=== PATIENT | male | born 1945 | race Caucasian/White ===

== ENCOUNTER → 2018-04-12 08:53 | Outpatient (CLI) | payer MEDICARE, BC, SELFPAY ==
[2018-04-12 09:58] LABS: BUN Creatinine Ratio 23.3 (6-22); Blood Urea Nitrogen 21 mg/dL (9-20); Carbon Dioxide 29 mmol/L (22-32); Chloride 105 mmol/L (98-107); Estimated Glomerular Filt Rate > 60.0 mL/min (>60); Glucose 101 mg/dL (80-110); HEMOLYSIS < 15 (0-50); Potassium 4.1 mmol/L (3.4-5.1); Sodium 145 mmol/L (137-145)
== END ==
PROVIDERS: PCP Internal Medicine; Visit Provider Internal Medicine
DX: I10 Essential (primary) hypertension (principal); E11.9 Type 2 diabetes mellitus without complications
CPT/HCPCS: 36415; 80048; 83036

== ENCOUNTER 2018-06-27 11:35 | Emergency (ER) | payer MEDICARE, BC, SELFPAY ==
[2018-06-27 11:48] VITALS: BP 153/89; PULSE 60; RESP 20; TEMP 36; O2SAT 100
--- NOTE | 2018-06-27 13:21 | ED.ABDPAIN ---
HPI - Abdominal Pain <WOODY Lynch - Last Filed: 06/27/18 22:02> General Chief Complaint: Abdominal Pain Stated Complaint: pain lower right side Time Seen by Provider: 06/27/18 13:21 Source: patient Mode of arrival: ambulatory Limitations: no limitations History of Present Illness HPI narrative: [age] year old male with history of hypertension and a nonsmoker here for complaint of right-sided abdominal pain that started this morning. He states that he woke up with the pain. He denies any nausea vomiting. Last p.o. intake was this morning. He states that he had a stool this morning as well that was normal. He denies any urinary symptoms. No fevers no chills. He denies any trauma to the abdomen. He denies any stressors or relievers of his pain. MD complaint: abdominal pain Related Data Home Medications Medication Instructions Recorded Confirmed aspirin 81 mg PO QDAY #0 06/21/11 06/27/18 multivitamin 1 tab PO QDAY #0 06/21/11 06/27/18 Saline Mist 1 spray INHALATION BID 06/27/18 06/27/18 budesonide, micronized (bulk) 0.6 mg MISCELLANEOUS Q OTHER DAY 06/27/18 06/27/18 lisinopril 20 mg PO DAILY 06/27/18 06/27/18 soft lens rinse,store solution 06/27/18 06/27/18 [Saline Solution] Previous Rx's Medication Instructions Recorded docusate calcium [Surfak] 240 mg PO DAILY #10 cap 06/27/18 hydrocodone-acetaminophen [[place]] 1 tab PO Q4-6H PRN #15 tab 06/27/18 tamsulosin 0.4 mg PO DAILY #7 cap 06/27/18 Allergies Allergy/AdvReac Type Severity Reaction Status Date / Time No Known Drug Allergies Allergy Verified 06/27/18 11:48 Review of Systems <WOODY Lynch - Last Filed: 06/27/18 22:02> Constitutional Denies chills, Denies fever(s), Denies lethargy and Denies weakness Eyes Denies change in vision, Denies eye discharge, Denies irritation and Denies loss of vision ENT Ears, Nose, Mouth, and Throat: Denies change in voice, Denies neck pain and Denies sore throat Cardiovascular Denies chest pain, Denies irregular heart rhythm, Denies lightheadedness, Denies palpitations, Denies dyspnea, Denies dyspnea on exertion and Denies orthopnea Respiratory Denies cough, Denies dyspnea, Denies dyspnea on exertion and Denies wheezing Gastrointestinal Gastrointestinal: Reports abdominal pain Genitourinary Denies hematuria, Denies flank pain, Denies urinary incontinence and Denies urinary urgency Musculoskeletal Denies neck pain Integumentary/Breasts Denies pruritus, Denies erythema, Denies rash and Denies wounds Neurologic Denies confusion, Denies loss of vision and Denies weakness Psychiatric Denies anxiety, Denies confusion, Denies depression, Denies homicidal ideation and Denies suicidal ideation Endocrine Denies palpitations Hematologic/Lymphatic Denies easy bruising Allergic/Immunologic Denies wheezing Exam <WOODY Lynch - Last Filed: 06/27/18 22:02> Initial Vital Signs Initial Vital Signs: Vital Signs Temperature 96.8 F L 06/27/18 11:48 Pulse Rate 60 06/27/18 11:48 Respiratory Rate 20 06/27/18 11:48 Blood Pressure 153/89 H 06/27/18 11:48 Pulse Oximetry 100 06/27/18 11:48 Const General: cooperative and well developed Nutritional Appearance: well nourished Orientation: alert, awake, oriented x3 and not confused HENAZ Mouth: oral mucosae normal and moist mucous membranes Eyes Conjunctivae: conjunctivae normal Sclera: sclerae normal Pupils: PERRL EOM: EOM intact bilaterally Resp Effort & Inspection: normal respiratory effort, able to speak in complete sentences, no respiratory distress and no use of accessory muscles Auscultation: clear to auscultation bilaterally, no rales, no rhonchi and no wheezes Cardio Rate: regular rate Rhythm: regular rhythm Heart Sounds: no click, no gallops, no murmurs and no rubs Pulses: normal peripheral pulses GI Inspection: non-distended Palpation: soft, no hepatosplenomegaly, No guarding, No pulsatile mass and tender (Tenderness to right lower quadrant) Auscultation: normal bowel sounds General: CVA tenderness Skin General: no rashes or lesions noted, No jaundice and No petechiae Neuro General: alert, oriented x3, gait normal and no focal motor deficits Speech: speech normal <Malaika Martinez DO - Last Filed: 06/30/18 08:08> Initial Vital Signs Initial Vital Signs: Vital Signs Temperature 96.8 F L 06/27/18 11:48 Pulse Rate 60 06/27/18 11:48 Respiratory Rate 20 06/27/18 11:48 Blood Pressure 153/89 H 06/27/18 11:48 Pulse Oximetry 100 06/27/18 11:48 Course <WOODY Lynch - Last Filed: 06/27/18 22:02> Orders Ordered: Discontinued Medications Hydromorphone HCl (Dilaudid) 0.5 mg IV NOW ONE Stop: 06/27/18 13:30 Last Admin: 06/27/18 13:34 Dose: 0.5 mg Sodium Chloride (Normal Saline 0.9%) 1,000 mls @ 1,000 mls/hr IV BOLUS ONE Stop: 06/27/18 14:28 Last Infusion: 06/27/18 14:28 Dose: 0 mls/hr Admin: 06/27/18 13:35 Dose: 1,000 mls/hr Ketorolac Tromethamine (Toradol) 30 mg IV NOW ONE Stop: 06/27/18 14:32 Last Admin: 06/27/18 14:35 Dose: 30 mg Ondansetron HCl (Zofran) 4 mg IV NOW ONE Stop: 06/27/18 13:30 Last Admin: 06/27/18 13:34 Dose: 4 mg Vital Signs - 8 hr 06/27/18 14:47 Pulse Rate 72 Respiratory Rate 20 Blood Pressure [Left Arm] 118/63 Pulse Oximetry 99 <Malaika Martinez DO - Last Filed: 06/30/18 08:08> Orders Ordered: Discontinued Medications Hydromorphone HCl (Dilaudid) 0.5 mg IV NOW ONE Stop: 06/27/18 13:30 Last Admin: 06/27/18 13:34 Dose: 0.5 mg Sodium Chloride (Normal Saline 0.9%) 1,000 mls @ 1,000 mls/hr IV BOLUS ONE Stop: 06/27/18 14:28 Last Infusion: 06/27/18 14:28 Dose: 0 mls/hr Admin: 06/27/18 13:35 Dose: 1,000 mls/hr Ketorolac Tromethamine (Toradol) 30 mg IV NOW ONE Stop: 06/27/18 14:32 Last Admin: 06/27/18 14:35 Dose: 30 mg Ondansetron HCl (Zofran) 4 mg IV NOW ONE Stop: 06/27/18 13:30 Last Admin: 06/27/18 13:34 Dose: 4 mg Vital Signs - 8 hr 06/27/18 14:47 Pulse Rate 72 Respiratory Rate 20 Blood Pressure [Left Arm] 118/63 Pulse Oximetry 99 MDM - Abdominal Pain <WOODY Lynch - Last Filed: 06/27/18 22:02> Lab Data Result diagrams: 06/27/18 13:20 06/27/18 13:20 Lab Results 06/27/18 06/27/18 Range/Units 13:20 13:20 WBC 12.7 H (4.5-11.0) X10^3/uL RBC 5.24 (4.5-5.9) X10^6/uL Hgb 15.1 (13.5-17.5) g/dL Hct 44.8 (41-53) % MCV 85.5 (80-100) fL MCH 28.8 (26-34) PG MCHC 33.7 (30-36) % RDW 13.9 (11.6-14.8) % Plt Count 181 (150-400) X10^3/uL Neut % (Auto) 78.1 H (50-75) % Lymph % (Auto) 10.4 L (25-40) % George % (Auto) 8.8 (3-14) % Eos % (Auto) 2.0 (2-4) % Baso % (Auto) 0.7 (0-2) % Neut # (Auto) 9900 H (0987-0503) /uL Sodium 141 (137-145) mmol/L Potassium 4.1 (3.4-5.1) mmol/L Chloride 101 (98-107) mmol/L Carbon Dioxide 23 (22-32) mmol/L BUN 21 H (9-20) mg/dL Creatinine 1.00 (0.66-1.25) mg/dL Estimated GFR > 60.0 (>60) mL/min BUN/Creatinine Ratio 21.0 (6-22) Glucose 169 H (80-110) mg/dL Calcium 9.7 (8.4-10.2) mg/dL Total Bilirubin 1.2 (0.2-1.3) mg/dL AST 38 (17-59) IU/L ALT 53 (21-72) IU/L Alkaline Phosphatase 64 (38-126) U/L Total Protein 7.2 (6.3-8.2) g/dL Albumin 4.6 (3.5-5.0) g/dL Globulin 2.6 (1.7-4.1) g/dL Albumin/Globulin Ratio 1.8 (1.0-2.8) Lipase 102 (23-300) U/L Point of care testing: Urine Dip Bedside Urine Glucose Negative Bedside Urine Bilirubin - Negative Bedside Urine Ketone +/- 5 Urine Specific [place] 1.010 Bedside Urine Occult Blood +++ Bedside Urine pH 7.5 Bedside Urine Protein - Negative Bedside Urine Urobilinogen 0.2 Bedside Urine Nitrite - Negative Bedside Urine Leukocytes - Negative Esterase Imaging Data CT scan - abdomen: Radiologist's impression: CT Scan Report Signed Patient: Andrade Juarez [facility]#: [id number] : 6Acct:[id number] Age/Sex: 72 / MDate of Service: 06/27/18 Loc: ED Accession Number: [id number] Procedure: CT abdomen pelvis w con Ordering Provider: Ervin Bejarano PROCEDURE: CT ABDOMEN PELVIS W CON INDICATIONS: Right lower quadrant pain TECHNIQUE: After the administration of intravenous contrast, 5 mm thick sections acquired from the diaphragm to the symphysis. 5 mm coronal and sagittal reformats were acquired. For radiation dose reduction, the following was used: automated exposure control, adjustment of mA and/or kV according to patient size. COMPARISON: [facility], , ABD AORTA ANEURYSM SCREENING, 10/05/2014, 13:46. FINDINGS: Image quality: Excellent. ABDOMEN: Lung bases: Lung bases are clear. Heart size is normal. A small hiatal hernia is incidentally noted. Solid organs: Liver is normal in size and enhancement. Gallbladder wall is not thickened. Biliary system is non dilated. Pancreas enhances normally. Spleen is normal in size and enhancement. No adrenal nodules. Kidneys demonstrate normal size and enhancement. There is an obstructing stone seen involving the right proximal ureter, as on series 2 image 46 and on series 4 image 31 that measures 4 mm. There is associated moderate to prominent right-sided hydroureter and hydronephrosis. Tiny nonobstructing kidney stones are seen on the right that measure 1-2 mm. Simple appearing nonenhancing bilateral renal cysts are seen. There is no left-sided hydronephrosis. Peritoneum and bowel: Bowel loops demonstrate normal wall thickness and caliber. No free fluid or air. The appendix is well-seen and is normal. Diverticulosis is seen, without findings of active diverticulitis. Nodes and vessels: No retroperitoneal or mesenteric adenopathy by size criteria. Aorta and inferior vena cava are normal in size. Miscellaneous: No ventral hernias. PELVIS: Genitourinary: Bladder wall thickness is normal. Miscellaneous: No inguinal hernias or adenopathy. Prior right inguinal hernia repair can be seen. Bones: No suspicious bony lesions. No vertebral body compression fractures. IMPRESSION: Obstructing right proximal ureteral stone measuring 4 mm. There is associated hydroureter, hydronephrosis, and perinephric fat stranding. Tiny nonobstructing right-sided kidney stones are seen. Normal appendix. Incidental note is made of: Small hiatal hernia Prior right inguinal hernia repair Diverticulosis is seen, without findings of active diverticulitis. Note: Case discussed by telephone with Ervin Wilkinson at 2:32 PM on June 27, 2018. Dictated by: Delonte Petty M.D. on 06/27/2018 at 14:28 Approved by: Delonte Petty M.D. on 06/27/2018 at 14:33 MDM Narrative Medical decision making narrative: CBC shows elevated white count of 12.7 and elevated neutrophils. Chem panel was obtained was unremarkable. Lipase was negative. CT of the abdomen shows a 4 mm obstructing stone in the right ureter with hydronephrosis and hydroureter. he was given Dilaudid and Toradol in the emergency room along with fluids. Patient is feeling much better at this timeframe. He is prescribed tamulosin and [place]. He is also prescribed stool softener to help with the [place]. Follow up with primary care provider the next few days for re-evaluation. He is instructed to strain his urine. For any worsening symptoms return to the emergency room. <Malaika Martinez DO - Last Filed: 06/30/18 08:08> Lab Data Lab Results 09/20/18 09/20/18 Range/Units 13:20 13:20 WBC 12.7 H (4.5-11.0) X10^3/uL RBC 5.24 (4.5-5.9) X10^6/uL Hgb 15.1 (13.5-17.5) g/dL Hct 44.8 (41-53) % MCV 85.5 (80-100) fL MCH 28.8 (26-34) PG MCHC 33.7 (30-36) % RDW 13.9 (11.6-14.8) % Plt Count 181 (150-400) X10^3/uL Neut % (Auto) 78.1 H (50-75) % Lymph % (Auto) 10.4 L (25-40) % George % (Auto) 8.8 (3-14) % Eos % (Auto) 2.0 (2-4) % Baso % (Auto) 0.7 (0-2) % Neut # (Auto) 9900 H (8977-2946) /uL Sodium 141 (137-145) mmol/L Potassium 4.1 (3.4-5.1) mmol/L Chloride 101 (98-107) mmol/L Carbon Dioxide 23 (22-32) mmol/L BUN 21 H (9-20) mg/dL Creatinine 1.00 (0.66-1.25) mg/dL Estimated GFR > 60.0 (>60) mL/min BUN/Creatinine Ratio 21.0 (6-22) Glucose 169 H (80-110) mg/dL Calcium 9.7 (8.4-10.2) mg/dL Total Bilirubin 1.2 (0.2-1.3) mg/dL AST 38 (17-59) IU/L ALT 53 (21-72) IU/L Alkaline Phosphatase 64 (38-126) U/L Total Protein 7.2 (6.3-8.2) g/dL Albumin 4.6 (3.5-5.0) g/dL Globulin 2.6 (1.7-4.1) g/dL Albumin/Globulin Ratio 1.8 (1.0-2.8) Lipase 102 (23-300) U/L Point of care testing: Urine Dip Bedside Urine Glucose Negative Bedside Urine Bilirubin - Negative Bedside Urine Ketone +/- 5 Urine Specific [place] 1.010 Bedside Urine Occult Blood +++ Bedside Urine pH 7.5 Bedside Urine Protein - Negative Bedside Urine Urobilinogen 0.2 Bedside Urine Nitrite - Negative Bedside Urine Leukocytes - Negative Esterase Discharge Plan Departure Patient Disposition: Home Clinical Impression: Right nephrolithiasis Discharge Date/Time: 06/27/18 15:27 Interventions: ED Discharge Assessment Last Done: 06/27/18 15:26 Instructions: Kidney Stones -- Adult Activity Restrictions/Additional Instructions: CT the abdomen shows kidney stone into the right ureter. Laboratory results today were unremarkable. Urine prescribed [place] for pain use as directed. UR also prescribed Taulosin to help pass the stone. Strain all of her urine if a kidney stone was collected save for analysis. Follow up with her primary care provider in the next few days. No driving while on the [place]. Stool Softener also prescribed to help prevent constipation. For any worsening symptoms return to the emergency room. Prescriptions: New hydrocodone-acetaminophen [[place]] 5-325 mg tablet 1 tab PO Q4-6H PRN (Reason: pain) Qty: 15 RF: 0 docusate calcium [Surfak] 240 mg capsule 240 mg PO DAILY Qty: 10 RF: 0 tamsulosin 0.4 mg capsule 0.4 mg PO DAILY Qty: 7 RF: 0 No Action multivitamin Tablet 1 tab PO QDAY Qty: 0 RF: 0 aspirin 81 MG tablet,delayed release (DR/EC) 81 mg PO QDAY Qty: 0 RF: 0 lisinopril 20 mg tablet 20 mg PO DAILY RF: 0 budesonide, micronized (bulk) 100 % powder 0.6 mg miscellaneous Q OTHER DAY RF: 0 soft lens rinse,store solution [Saline Solution] Solution RF: 0 Saline Mist 1 spray Inhalation BID RF: 0 Referrals: Bryant Juarez MD [Primary Care Provider] - <Malaika Martinez DO - Last Filed: 06/30/18 08:08> Cosign ED Attending Cosignature Attestation: I was immediately available in the department for consultation. This documentation has been reviewed and I agree with assessment and plan. Supervised by Malaika Martinez DO
[2018-06-27] MEDS: HYDROMORPHONE 1 MG INJ 0.5 MG IV (13:34)
[2018-06-27] MEDS: ONDANSETRON 4 MG/2 ML INJ IV (13:34)
[2018-06-27] MEDS: SODIUM CHLORIDE 0.9% 1,000 ML 1000 ML IV (13:35)
[2018-06-27 13:38] LABS: Add Manual Diff / Slide Review NO; Basophils Percent Auto 0.7 % (0-2); Hematocrit 44.8 % (41-53); Hemoglobin 15.1 g/dL (13.5-17.5); Lymphocytes Percent Auto 10.4 % (25-40); Mean Corpuscular HGB Conc 33.7 % (30-36); Mean Corpuscular Hemoglobin 28.8 PG (26-34); Mean Corpuscular Volume 85.5 fL (80-100); Monocytes Percent Auto 8.8 % (3-14); Neutrophils Absolute Auto 9900 /uL (3000-5900); Neutrophils Percent Auto 78.1 % (50-75); Platelet Count 181 X10^3/uL (150-400); Red Blood Cell Count 5.24 X10^6/uL (4.5-5.9); Red Cell Distribution Width 13.9 % (11.6-14.8); White Blood Cell Count 12.7 X10^3/uL (4.5-11.0)
[2018-06-27 13:43] LABS: Alanine Aminotransferase 53 IU/L (21-72); Albumin 4.6 g/dL (3.5-5.0); Albumin Globulin Ratio 1.8 (1.0-2.8); Alkaline Phosphatase 64 U/L (38-126); Aspartate Aminotransferase 38 IU/L (17-59); Bilirubin Total 1.2 mg/dL (0.2-1.3); Blood Urea Nitrogen 21 mg/dL (9-20); Calcium 9.7 mg/dL (8.4-10.2); Carbon Dioxide 23 mmol/L (22-32); Chloride 101 mmol/L (98-107); Estimated Glomerular Filt Rate > 60.0 mL/min (>60); Globulin 2.6 g/dL (1.7-4.1); Glucose 169 mg/dL (80-110); HEMOLYSIS < 15 (0-50); Lipase 102 U/L (23-300); Potassium 4.1 mmol/L (3.4-5.1); Sodium 141 mmol/L (137-145); Total Protein 7.2 g/dL (6.3-8.2)
--- NOTE | 2018-06-27 13:45 | DI.CT.S_ITS ---
PROCEDURE: CT ABDOMEN PELVIS W CON INDICATIONS: Right lower quadrant pain TECHNIQUE: After the administration of intravenous contrast, 5 mm thick sections acquired from the diaphragm to the symphysis. 5 mm coronal and sagittal reformats were acquired. For radiation dose reduction, the following was used: automated exposure control, adjustment of mA and/or kV according to patient size. COMPARISON: [facility], , ABD AORTA ANEURYSM SCREENING, 10/05/2014, 13:46. FINDINGS: Image quality: Excellent. ABDOMEN: Lung bases: Lung bases are clear. Heart size is normal. A small hiatal hernia is incidentally noted. Solid organs: Liver is normal in size and enhancement. Gallbladder wall is not thickened. Biliary system is non dilated. Pancreas enhances normally. Spleen is normal in size and enhancement. No adrenal nodules. Kidneys demonstrate normal size and enhancement. There is an obstructing stone seen involving the right proximal ureter, as on series 2 image 46 and on series 4 image 31 that measures 4 mm. There is associated moderate to prominent right-sided hydroureter and hydronephrosis. Tiny nonobstructing kidney stones are seen on the right that measure 1-2 mm. Simple appearing nonenhancing bilateral renal cysts are seen. There is no left-sided hydronephrosis. Peritoneum and bowel: Bowel loops demonstrate normal wall thickness and caliber. No free fluid or air. The appendix is well-seen and is normal. Diverticulosis is seen, without findings of active diverticulitis. Nodes and vessels: No retroperitoneal or mesenteric adenopathy by size criteria. Aorta and inferior vena cava are normal in size. Miscellaneous: No ventral hernias. PELVIS: Genitourinary: Bladder wall thickness is normal. Miscellaneous: No inguinal hernias or adenopathy. Prior right inguinal hernia repair can be seen. Bones: No suspicious bony lesions. No vertebral body compression fractures. IMPRESSION: Obstructing right proximal ureteral stone measuring 4 mm. There is associated hydroureter, hydronephrosis, and perinephric fat stranding. Tiny nonobstructing right-sided kidney stones are seen. Normal appendix. Incidental note is made of: Small hiatal hernia Prior right inguinal hernia repair Diverticulosis is seen, without findings of active diverticulitis. Note: Case discussed by telephone with Ervin Wilkinson at 2:32 PM on June 27, 2018. Dictated by: Delonte Petty M.D. on 06/27/2018 at 14:28 Approved by: Delonte Petty M.D. on 06/27/2018 at 14:33
[2018-06-27] MEDS: KETOROLAC 60 MG/2 ML VIAL 30 MG IV (14:35)
[2018-06-27 14:47] VITALS: BP 118/63; PULSE 72; RESP 20; O2SAT 99
--- NOTE | 2018-06-27 14:48 | ED_ITS ---
HPI - Abdominal Pain <WOODY Lynch - Last Filed: 06/27/18 22:02> General Chief Complaint: Abdominal Pain Stated Complaint: pain lower right side Time Seen by Provider: 06/27/18 13:21 Source: patient Mode of arrival: ambulatory Limitations: no limitations History of Present Illness HPI narrative: [age] year old male with history of hypertension and a nonsmoker here for complaint of right-sided abdominal pain that started this morning. He states that he woke up with the pain. He denies any nausea vomiting. Last p.o. intake was this morning. He states that he had a stool this morning as well that was normal. He denies any urinary symptoms. No fevers no chills. He denies any trauma to the abdomen. He denies any stressors or relievers of his pain. MD complaint: abdominal pain Related Data Home Medications Medication Instructions Recorded Confirmed aspirin 81 mg PO QDAY #0 06/21/11 06/27/18 multivitamin 1 tab PO QDAY #0 06/21/11 06/27/18 Saline Mist 1 spray INHALATION BID 06/27/18 06/27/18 budesonide, micronized (bulk) 0.6 mg MISCELLANEOUS Q OTHER DAY 06/27/18 06/27/18 lisinopril 20 mg PO DAILY 06/27/18 06/27/18 soft lens rinse,store solution 06/27/18 06/27/18 [Saline Solution] Previous Rx's Medication Instructions Recorded docusate calcium [Surfak] 240 mg PO DAILY #10 cap 06/27/18 hydrocodone-acetaminophen [[place]] 1 tab PO Q4-6H PRN #15 tab 06/27/18 tamsulosin 0.4 mg PO DAILY #7 cap 06/27/18 Allergies Allergy/AdvReac Type Severity Reaction Status Date / Time No Known Drug Allergies Allergy Verified 06/27/18 11:48 Review of Systems <WOODY Lynch - Last Filed: 06/27/18 22:02> Constitutional Denies chills, Denies fever(s), Denies lethargy and Denies weakness Eyes Denies change in vision, Denies eye discharge, Denies irritation and Denies loss of vision ENT Ears, Nose, Mouth, and Throat: Denies change in voice, Denies neck pain and Denies sore throat Cardiovascular Denies chest pain, Denies irregular heart rhythm, Denies lightheadedness, Denies palpitations, Denies dyspnea, Denies dyspnea on exertion and Denies orthopnea Respiratory Denies cough, Denies dyspnea, Denies dyspnea on exertion and Denies wheezing Gastrointestinal Gastrointestinal: Reports abdominal pain Genitourinary Denies hematuria, Denies flank pain, Denies urinary incontinence and Denies urinary urgency Musculoskeletal Denies neck pain Integumentary/Breasts Denies pruritus, Denies erythema, Denies rash and Denies wounds Neurologic Denies confusion, Denies loss of vision and Denies weakness Psychiatric Denies anxiety, Denies confusion, Denies depression, Denies homicidal ideation and Denies suicidal ideation Endocrine Denies palpitations Hematologic/Lymphatic Denies easy bruising Allergic/Immunologic Denies wheezing Exam <WOODY Lynch - Last Filed: 06/27/18 22:02> Initial Vital Signs Initial Vital Signs: Vital Signs Temperature 96.8 F L 06/27/18 11:48 Pulse Rate 60 06/27/18 11:48 Respiratory Rate 20 06/27/18 11:48 Blood Pressure 153/89 H 06/27/18 11:48 Pulse Oximetry 100 06/27/18 11:48 Const General: cooperative and well developed Nutritional Appearance: well nourished Orientation: alert, awake, oriented x3 and not confused HENSC Mouth: oral mucosae normal and moist mucous membranes Eyes Conjunctivae: conjunctivae normal Sclera: sclerae normal Pupils: PERRL EOM: EOM intact bilaterally Resp Effort & Inspection: normal respiratory effort, able to speak in complete sentences, no respiratory distress and no use of accessory muscles Auscultation: clear to auscultation bilaterally, no rales, no rhonchi and no wheezes Cardio Rate: regular rate Rhythm: regular rhythm Heart Sounds: no click, no gallops, no murmurs and no rubs Pulses: normal peripheral pulses GI Inspection: non-distended Palpation: soft, no hepatosplenomegaly, No guarding, No pulsatile mass and tender (Tenderness to right lower quadrant) Auscultation: normal bowel sounds General: CVA tenderness Skin General: no rashes or lesions noted, No jaundice and No petechiae Neuro General: alert, oriented x3, gait normal and no focal motor deficits Speech: speech normal <Malaika Martinez DO - Last Filed: 06/30/18 08:08> Initial Vital Signs Initial Vital Signs: Vital Signs Temperature 96.8 F L 06/27/18 11:48 Pulse Rate 60 06/27/18 11:48 Respiratory Rate 20 06/27/18 11:48 Blood Pressure 153/89 H 06/27/18 11:48 Pulse Oximetry 100 06/27/18 11:48 Course <WOODY Lynch - Last Filed: 06/27/18 22:02> Orders Ordered: Discontinued Medications Hydromorphone HCl (Dilaudid) 0.5 mg IV NOW ONE Stop: 06/27/18 13:30 Last Admin: 06/27/18 13:34 Dose: 0.5 mg Sodium Chloride (Normal Saline 0.9%) 1,000 mls @ 1,000 mls/hr IV BOLUS ONE Stop: 06/27/18 14:28 Last Infusion: 06/27/18 14:28 Dose: 0 mls/hr Admin: 06/27/18 13:35 Dose: 1,000 mls/hr Ketorolac Tromethamine (Toradol) 30 mg IV NOW ONE Stop: 06/27/18 14:32 Last Admin: 06/27/18 14:35 Dose: 30 mg Ondansetron HCl (Zofran) 4 mg IV NOW ONE Stop: 06/27/18 13:30 Last Admin: 06/27/18 13:34 Dose: 4 mg Vital Signs - 8 hr 06/27/18 14:47 Pulse Rate 72 Respiratory Rate 20 Blood Pressure [Left Arm] 118/63 Pulse Oximetry 99 <Malaika Martinez DO - Last Filed: 06/30/18 08:08> Orders Ordered: Discontinued Medications Hydromorphone HCl (Dilaudid) 0.5 mg IV NOW ONE Stop: 06/27/18 13:30 Last Admin: 06/27/18 13:34 Dose: 0.5 mg Sodium Chloride (Normal Saline 0.9%) 1,000 mls @ 1,000 mls/hr IV BOLUS ONE Stop: 06/27/18 14:28 Last Infusion: 06/27/18 14:28 Dose: 0 mls/hr Admin: 06/27/18 13:35 Dose: 1,000 mls/hr Ketorolac Tromethamine (Toradol) 30 mg IV NOW ONE Stop: 06/27/18 14:32 Last Admin: 06/27/18 14:35 Dose: 30 mg Ondansetron HCl (Zofran) 4 mg IV NOW ONE Stop: 06/27/18 13:30 Last Admin: 06/27/18 13:34 Dose: 4 mg Vital Signs - 8 hr 06/27/18 14:47 Pulse Rate 72 Respiratory Rate 20 Blood Pressure [Left Arm] 118/63 Pulse Oximetry 99 MDM - Abdominal Pain <WOODY Lynch - Last Filed: 06/27/18 22:02> Lab Data Result diagrams: 06/27/18 13:20 06/27/18 13:20 Lab Results 06/27/18 06/27/18 Range/Units 13:20 13:20 WBC 12.7 H (4.5-11.0) X10^3/uL RBC 5.24 (4.5-5.9) X10^6/uL Hgb 15.1 (13.5-17.5) g/dL Hct 44.8 (41-53) % MCV 85.5 (80-100) fL MCH 28.8 (26-34) PG MCHC 33.7 (30-36) % RDW 13.9 (11.6-14.8) % Plt Count 181 (150-400) X10^3/uL Neut % (Auto) 78.1 H (50-75) % Lymph % (Auto) 10.4 L (25-40) % [place] % (Auto) 8.8 (3-14) % Eos % (Auto) 2.0 (2-4) % Baso % (Auto) 0.7 (0-2) % Neut # (Auto) 9900 H (7531-5241) /uL Sodium 141 (137-145) mmol/L Potassium 4.1 (3.4-5.1) mmol/L Chloride 101 (98-107) mmol/L Carbon Dioxide 23 (22-32) mmol/L BUN 21 H (9-20) mg/dL Creatinine 1.00 (0.66-1.25) mg/dL Estimated GFR > 60.0 (>60) mL/min BUN/Creatinine Ratio 21.0 (6-22) Glucose 169 H (80-110) mg/dL Calcium 9.7 (8.4-10.2) mg/dL Total Bilirubin 1.2 (0.2-1.3) mg/dL AST 38 (17-59) IU/L ALT 53 (21-72) IU/L Alkaline Phosphatase 64 (38-126) U/L Total Protein 7.2 (6.3-8.2) g/dL Albumin 4.6 (3.5-5.0) g/dL Globulin 2.6 (1.7-4.1) g/dL Albumin/Globulin Ratio 1.8 (1.0-2.8) Lipase 102 (23-300) U/L Point of care testing: Urine Dip Bedside Urine Glucose Negative Bedside Urine Bilirubin - Negative Bedside Urine Ketone +/- 5 Urine Specific [place] 1.010 Bedside Urine Occult Blood +++ Bedside Urine pH 7.5 Bedside Urine Protein - Negative Bedside Urine Urobilinogen 0.2 Bedside Urine Nitrite - Negative Bedside Urine Leukocytes - Negative Esterase Imaging Data CT scan - abdomen: Radiologist's impression: CT Scan Report Signed Patient: Andrade Juarez [facility]#: [id number] : 6Acct:[id number] Age/Sex: 72 / MDate of Service: 06/27/18 Loc: ED Accession Number: [id number] Procedure: CT abdomen pelvis w con Ordering Provider: Ervin Bejarano PROCEDURE: CT ABDOMEN PELVIS W CON INDICATIONS: Right lower quadrant pain TECHNIQUE: After the administration of intravenous contrast, 5 mm thick sections acquired from the diaphragm to the symphysis. 5 mm coronal and sagittal reformats were acquired. For radiation dose reduction, the following was used: automated exposure control, adjustment of mA and/or kV according to patient size. COMPARISON: [facility], , ABD AORTA ANEURYSM SCREENING, 10/05/2014, 13: 46. FINDINGS: Image quality: Excellent. ABDOMEN: Lung bases: Lung bases are clear. Heart size is normal. A small hiatal hernia is incidentally noted. Solid organs: Liver is normal in size and enhancement. Gallbladder wall is not thickened. Biliary system is non dilated. Pancreas enhances normally. Spleen is normal in size and enhancement. No adrenal nodules. Kidneys demonstrate normal size and enhancement. There is an obstructing stone seen involving the right proximal ureter, as on series 2 image 46 and on series 4 image 31 that measures 4 mm. There is associated moderate to prominent right-sided hydroureter and hydronephrosis. Tiny nonobstructing kidney stones are seen on the right that measure 1-2 mm. Simple appearing nonenhancing bilateral renal cysts are seen. There is no left-sided hydronephrosis. Peritoneum and bowel: Bowel loops demonstrate normal wall thickness and caliber. No free fluid or air. The appendix is well-seen and is normal. Diverticulosis is seen, without findings of active diverticulitis. Nodes and vessels: No retroperitoneal or mesenteric adenopathy by size criteria. Aorta and inferior vena cava are normal in size. Miscellaneous: No ventral hernias. PELVIS: Genitourinary: Bladder wall thickness is normal. Miscellaneous: No inguinal hernias or adenopathy. Prior right inguinal hernia repair can be seen. Bones: No suspicious bony lesions. No vertebral body compression fractures. IMPRESSION: Obstructing right proximal ureteral stone measuring 4 mm. There is associated hydroureter, hydronephrosis, and perinephric fat stranding. Tiny nonobstructing right-sided kidney stones are seen. Normal appendix. Incidental note is made of: Small hiatal hernia Prior right inguinal hernia repair Diverticulosis is seen, without findings of active diverticulitis. Note: Case discussed by telephone with Ervin Wilkinson at 2:32 PM on June 27, 2018. Dictated by: Delonte Petty M.D. on 06/27/2018 at 14:28 Approved by: Delonte Petty M.D. on 06/27/2018 at 14:33 MDM Narrative Medical decision making narrative: CBC shows elevated white count of 12.7 and elevated neutrophils. Chem panel was obtained was unremarkable. Lipase was negative. CT of the abdomen shows a 4 mm obstructing stone in the right ureter with hydronephrosis and hydroureter. he was given Dilaudid and Toradol in the emergency room along with fluids. Patient is feeling much better at this timeframe. He is prescribed tamulosin and [place]. He is also prescribed stool softener to help with the [place]. Follow up with primary care provider the next few days for re-evaluation. He is instructed to strain his urine. For any worsening symptoms return to the emergency room. <Malaika Martinez DO - Last Filed: 06/30/18 08:08> Lab Data Lab Results 09/20/18 09/20/18 Range/Units 13:20 13:20 WBC 12.7 H (4.5-11.0) X10^3/uL RBC 5.24 (4.5-5.9) X10^6/uL Hgb 15.1 (13.5-17.5) g/dL Hct 44.8 (41-53) % MCV 85.5 (80-100) fL MCH 28.8 (26-34) PG MCHC 33.7 (30-36) % RDW 13.9 (11.6-14.8) % Plt Count 181 (150-400) X10^3/uL Neut % (Auto) 78.1 H (50-75) % Lymph % (Auto) 10.4 L (25-40) % [place] % (Auto) 8.8 (3-14) % Eos % (Auto) 2.0 (2-4) % Baso % (Auto) 0.7 (0-2) % Neut # (Auto) 9900 H (8462-5024) /uL Sodium 141 (137-145) mmol/L Potassium 4.1 (3.4-5.1) mmol/L Chloride 101 (98-107) mmol/L Carbon Dioxide 23 (22-32) mmol/L BUN 21 H (9-20) mg/dL Creatinine 1.00 (0.66-1.25) mg/dL Estimated GFR > 60.0 (>60) mL/min BUN/Creatinine Ratio 21.0 (6-22) Glucose 169 H (80-110) mg/dL Calcium 9.7 (8.4-10.2) mg/dL Total Bilirubin 1.2 (0.2-1.3) mg/dL AST 38 (17-59) IU/L ALT 53 (21-72) IU/L Alkaline Phosphatase 64 (38-126) U/L Total Protein 7.2 (6.3-8.2) g/dL Albumin 4.6 (3.5-5.0) g/dL Globulin 2.6 (1.7-4.1) g/dL Albumin/Globulin Ratio 1.8 (1.0-2.8) Lipase 102 (23-300) U/L Point of care testing: Urine Dip Bedside Urine Glucose Negative Bedside Urine Bilirubin - Negative Bedside Urine Ketone +/- 5 Urine Specific [place] 1.010 Bedside Urine Occult Blood +++ Bedside Urine pH 7.5 Bedside Urine Protein - Negative Bedside Urine Urobilinogen 0.2 Bedside Urine Nitrite - Negative Bedside Urine Leukocytes - Negative Esterase Discharge Plan Departure Patient Disposition: Home Clinical Impression: Right nephrolithiasis Discharge Date/Time: 06/27/18 15:27 Interventions: ED Discharge Assessment Last Done: 06/27/18 15:26 Instructions: Kidney Stones -- Adult Activity Restrictions/Additional Instructions: CT the abdomen shows kidney stone into the right ureter. Laboratory results today were unremarkable. Urine prescribed [place] for pain use as directed. UR also prescribed Taulosin to help pass the stone. Strain all of her urine if a kidney stone was collected save for analysis. Follow up with her primary care provider in the next few days. No driving while on the [place]. Stool Softener also prescribed to help prevent constipation. For any worsening symptoms return to the emergency room. Prescriptions: New hydrocodone-acetaminophen [[place]] 5-325 mg tablet 1 tab PO Q4-6H PRN (Reason: pain) Qty: 15 RF: 0 docusate calcium [Surfak] 240 mg capsule 240 mg PO DAILY Qty: 10 RF: 0 tamsulosin 0.4 mg capsule 0.4 mg PO DAILY Qty: 7 RF: 0 No Action multivitamin Tablet 1 tab PO QDAY Qty: 0 RF: 0 aspirin 81 MG tablet,delayed release (DR/EC) 81 mg PO QDAY Qty: 0 RF: 0 lisinopril 20 mg tablet 20 mg PO DAILY RF: 0 budesonide, micronized (bulk) 100 % powder 0.6 mg miscellaneous Q OTHER DAY RF: 0 soft lens rinse,store solution [Saline Solution] Solution RF: 0 Saline Mist 1 spray Inhalation BID RF: 0 Referrals: Bryant Juarez MD [Primary Care Provider] - <Malaika Martinez DO - Last Filed: 06/30/18 08:08> Cosign ED Attending Cosignature Attestation: I was immediately available in the department for consultation. This documentation has been reviewed and I agree with assessment and plan. Supervised by Malaika Martinez DO
== END 2018-06-27 15:27 | disposition home or self-care (01) ==
PROVIDERS: Emergency Provider Nurse Practitioner Family; Family Provider Internal Medicine; PCP Internal Medicine
DX: N20.0 Calculus of kidney (principal)
CPT/HCPCS: 36415; 36591; 74177; 80053; 81003; 83690; 85025; 96361; 96374; 96375; 99283; 99285; J1170; J1885; J2405

== ENCOUNTER → 2018-09-13 11:03 | Outpatient (CLI) | payer MEDICARE, BC, SELFPAY ==
--- NOTE | 2018-09-13 | DI.US.S_ITS ---
PROCEDURE: US RENAL COMPLETE INDICATIONS: URETEROLITHIASIS TECHNIQUE: Real-time scanning was performed of the kidneys and bladder, with image documentation. COMPARISON: [facility], CT, CT ABDOMEN PELVIS W CON, 06/27/2018, 13:53. FINDINGS: Kidneys: Kidneys are normal in size. Right kidney measures 12.3 cm long; left kidney measures 11.4 cm long. Right renal cortical thickness is 0.9 cm; left renal cortical thickness is 1.2 cm. Renal cortical echotexture is normal. Moderate right hydronephrosis similar to prior CT scan. Ureters aren't visualized. Bilateral renal cysts identified largest measuring up to 3.3 cm on the right and 4.1 cm left is mildly complex. Bladder: Pre-void bladder volume is 237 mL. Post-void residual is 19 mL. Pre-void images demonstrate no intraluminal masses or stones. On pre-void images, bilateral ureteral jets are noted with color Doppler interrogation. (Of note, ureteral jets may not be detectable in up to 25% of cases due to insufficient differences in specific gravity between ureteral and bladder urine). Miscellaneous: No free pelvic fluid. IMPRESSION: 1. Moderate right hydronephrosis redemonstrated in this patient with history of ureterolithiasis. 2. Bilateral renal cysts redemonstrated, the largest on the left and which is mildly complex (Bosniak 2F) and continued sonographic surveillance is recommended. Dictated by: Elver ADAMS Interpreted: Guy Knight MD on 09/13/2018 at 13:28 Approved by: Guy Knight M.D. on 09/14/2018 at 9:44
== END ==
PROVIDERS: Family Provider Internal Medicine; PCP Internal Medicine; Visit Provider Urology
DX: N13.2 Hydronephrosis with renal and ureteral calculous obstruction (principal); N28.1 Cyst of kidney, acquired
CPT/HCPCS: 76770

== ENCOUNTER → 2018-10-14 07:21 | Outpatient (CLI) | payer MEDICARE, BC, SELFPAY ==
[2018-10-14 08:55] LABS: Add Manual Diff / Slide Review NO; Basophils Percent Auto 1.1 % (0-2); Hematocrit 46.7 % (41-53); Hemoglobin 15.8 g/dL (13.5-17.5); Lymphocytes Percent Auto 18.8 % (25-40); Mean Corpuscular HGB Conc 33.8 % (30-36); Mean Corpuscular Hemoglobin 29.4 PG (26-34); Monocytes Percent Auto 10.2 % (3-14); Neutrophils Absolute Auto 4700 /uL (1500-7000); Neutrophils Percent Auto 64.9 % (50-75); Platelet Count 178 X10^3/uL (150-400); Red Blood Cell Count 5.37 X10^6/uL (4.5-5.9); Red Cell Distribution Width 14.2 % (11.6-14.8); White Blood Cell Count 7.3 X10^3/uL (4.5-11.0)
[2018-10-14 09:19] LABS: Alanine Aminotransferase 50 IU/L (21-72); Albumin 4.9 g/dL (3.5-5.0); Albumin Globulin Ratio 1.8 (1.0-2.8); Alkaline Phosphatase 56 U/L (38-126); Aspartate Aminotransferase 31 IU/L (17-59); Bilirubin Total 0.7 mg/dL (0.2-1.3); Blood Urea Nitrogen 20 mg/dL (9-20); Calcium 9.8 mg/dL (8.4-10.2); Carbon Dioxide 25 mmol/L (22-32); Chloride 104 mmol/L (98-107); Cholesterol 182 mg/dL (140-199); Estimated Glomerular Filt Rate > 60.0 mL/min (>60); Globulin 2.7 g/dL (1.7-4.1); Glucose 123 mg/dL (80-110); HDL Cholesterol 46 mg/dL (40-60); HEMOLYSIS < 15 (0-50); LDL Cholesterol Calculated 118 mg/dL (<100); Potassium 4.5 mmol/L (3.4-5.1); Sodium 142 mmol/L (137-145); Total Protein 7.6 g/dL (6.3-8.2); Triglycerides 91 mg/dL (35-150)
[2018-10-14 09:20] LABS: Hemoglobin A1C% w Est Avg Glu 6.1 % (4.0-6.0)
[2018-10-14 09:41] LABS: Prostate Specific Antigen Scrn 0.809 ng/mL (0.1-4.0)
== END ==
PROVIDERS: Family Provider Internal Medicine; PCP Internal Medicine; Visit Provider Internal Medicine
DX: I10 Essential (primary) hypertension (principal); E11.9 Type 2 diabetes mellitus without complications; Z12.5 Encounter for screening for malignant neoplasm of prostate
CPT/HCPCS: 36415; 80053; 80061; 83036; 85025; G0103

== ENCOUNTER → 2018-12-02 10:27 | Outpatient (CLI) | payer MEDICARE, BC, SELFPAY ==
--- NOTE | 2018-12-02 | DI.US.S_ITS ---
PROCEDURE: US RENAL COMPLETE INDICATIONS: KIDNEY STONES TECHNIQUE: Real-time scanning was performed of the kidneys and bladder, with image documentation. COMPARISON: [facility], CT, CT ABDOMEN PELVIS W CON, 06/27/2018, 13:53. [facility], US, US RENAL COMPLETE, 09/13/2018, 11:52. FINDINGS: Kidneys: Kidneys are normal in size. Right kidney measures 11.5 cm long; left kidney measures 11.4 cm long. Right renal cortical thickness is 1.1 cm; left renal cortical thickness is 1 cm. Renal cortical echotexture is normal. There is mild bilateral hydronephrosis seen. No nephrolithiasis. No suspicious solid mass lesions. Bilateral renal cysts are seen, with the largest on the right measuring up to 5.4 cm, and the largest on the left measuring 4.3 cm. The largest left cyst demonstrates internal septation. Bladder: Pre-void bladder volume is 587 mL. Post-void residual is 161 mL. Pre-void images demonstrate no intraluminal masses or stones. On pre-void images, both ureteral jets are noted with color Doppler interrogation. (Of note, ureteral jets may not be detectable in up to 25% of cases due to insufficient differences in specific gravity between ureteral and bladder urine). Miscellaneous: No free pelvic fluid. IMPRESSION: No kidney stones are detected on this ultrasound study. Mild bilateral hydronephrosis. Bilateral renal cysts are seen, including a septated cyst on the left. Moderate postvoid residual (161 cc). Dictated by: Delonte Petty M.D. on 12/02/2018 at 14:31 Approved by: Delonte Petty M.D. on 12/02/2018 at 14:34
== END ==
PROVIDERS: Family Provider Internal Medicine; PCP Internal Medicine; Visit Provider Urology
DX: N20.0 Calculus of kidney (principal); N28.1 Cyst of kidney, acquired; N13.30 Unspecified hydronephrosis
CPT/HCPCS: 76770

== ENCOUNTER → 2018-12-17 07:57 | Outpatient (CLI) | payer MEDICARE, BC, SELFPAY ==
[2018-12-17 10:03] LABS: Alanine Aminotransferase 61 IU/L (21-72); Aspartate Aminotransferase 41 IU/L (17-59); Cholesterol 108 mg/dL (140-199); HDL Cholesterol 39 mg/dL (40-60); LDL Cholesterol Calculated 53 mg/dL (<100); Triglycerides 82 mg/dL (35-150)
== END ==
PROVIDERS: Family Provider Internal Medicine; PCP Internal Medicine; Visit Provider Internal Medicine
DX: E78.00 Pure hypercholesterolemia, unspecified (principal)
CPT/HCPCS: 36415; 80061; 84450; 84460

== ENCOUNTER → 2019-12-15 07:38 | Outpatient (CLI) | payer MEDICARE, BC, SELFPAY ==
[2019-12-15 08:26] LABS: Add Manual Diff / Slide Review NO; Basophils Absolute Auto 100 /uL (0-100); Basophils Percent Auto 1.1 % (0-2); Eosinophils Absolute Auto 500 /uL (0-450); Eosinophils Percent Auto 6.9 % (2-4); Hematocrit 45.1 % (41-53); Hemoglobin 15.2 g/dL (13.5-17.5); Lymphocytes Absolute Auto 1200 /uL (1100-4500); Lymphocytes Percent Auto 17.8 % (25-40); Mean Corpuscular HGB Conc 33.6 % (30-36); Mean Corpuscular Hemoglobin 29.4 PG (26-34); Mean Corpuscular Volume 87.5 fL (80-100); Monocytes Absolute Auto 800 /uL (0-900); Monocytes Percent Auto 11.5 % (3-14); Neutrophils Absolute Auto 4400 /uL (1500-7000); Neutrophils Percent Auto 62.7 % (50-75); Platelet Count 159 X10^3/uL (150-400); Red Blood Cell Count 5.15 X10^6/uL (4.5-5.9); Red Cell Distribution Width 14.6 % (11.6-14.8)
[2019-12-15 08:40] LABS: Alanine Aminotransferase 52 IU/L (<50); Albumin 4.8 g/dL (3.5-5.0); Albumin Globulin Ratio 1.7 (1.0-2.8); Alkaline Phosphatase 46 U/L (38-126); Aspartate Aminotransferase 46 IU/L (17-59); BUN Creatinine Ratio 24.4 (6-22); Bilirubin Total 0.9 mg/dL (0.2-1.3); Blood Urea Nitrogen 22 mg/dL (9-20); Calcium 9.8 mg/dL (8.4-10.2); Carbon Dioxide 30 mmol/L (22-32); Chloride 104 mmol/L (98-107); Cholesterol 121 mg/dL (140-199); Estimated Glomerular Filt Rate > 60.0 mL/min (>60); Globulin 2.9 g/dL (1.7-4.1); Glucose 125 mg/dL (80-110); HDL Cholesterol 43 mg/dL (40-60); HEMOLYSIS < 15 (0-50); LDL Cholesterol Calculated 66 mg/dL (<100); Potassium 4.4 mmol/L (3.4-5.1); Sodium 139 mmol/L (137-145); Total Protein 7.7 g/dL (6.3-8.2); Triglycerides 60 mg/dL (35-150)
== END ==
PROVIDERS: Family Provider Internal Medicine; PCP Internal Medicine; Referring Provider Internal Medicine; Visit Provider Internal Medicine
DX: E11.9 Type 2 diabetes mellitus without complications (principal); E78.00 Pure hypercholesterolemia, unspecified
CPT/HCPCS: 36415; 80053; 80061; 85025

== ENCOUNTER → 2020-04-07 08:05 | Outpatient (CLI) | payer MEDICARE, BC, SELFPAY ==
[2020-04-07 10:34] LABS: Alanine Aminotransferase 47 IU/L (<50); Albumin 4.8 g/dL (3.5-5.0); Albumin Globulin Ratio 2.2 (1.0-2.8); Alkaline Phosphatase 49 U/L (38-126); Aspartate Aminotransferase 39 IU/L (17-59); Globulin 2.2 g/dL (1.7-4.1); HEMOLYSIS < 15 (0-50)
== END ==
PROVIDERS: Family Provider Internal Medicine; PCP Internal Medicine; Referring Provider Internal Medicine; Visit Provider Internal Medicine
DX: Z00.00 Encounter for general adult medical examination without abnormal findings (principal); E11.9 Type 2 diabetes mellitus without complications
CPT/HCPCS: 36415; 80076

== ENCOUNTER → 2020-04-13 09:01 | Outpatient (CLI) | payer MEDICARE, BC, SELFPAY ==
[2020-04-13 09:40] LABS: Hemoglobin A1C% w Est Avg Glu 5.8 % (4.0-6.0)
== END ==
PROVIDERS: Family Provider Internal Medicine; PCP Internal Medicine; Referring Provider Internal Medicine; Visit Provider Internal Medicine
DX: E11.9 Type 2 diabetes mellitus without complications (principal)
CPT/HCPCS: 36415; 83036

== ENCOUNTER → 2020-11-04 13:21 | Outpatient (CLI) | payer MEDICARE, BC, SELFPAY ==
[2020-11-04] MEDS: COVID-19 VACC #1, MRNA(MOD) 100 MCG/0.5 ML VIAL IM (13:26)
== END ==
PROVIDERS: Family Provider Internal Medicine; PCP Internal Medicine; Visit Provider Internal Medicine
DX: Z23 Encounter for immunization (principal)
CPT/HCPCS: 0011A; 91301

== ENCOUNTER → 2020-12-02 13:07 | Outpatient (CLI) | payer MEDICARE, BC, SELFPAY ==
[2020-12-02] MEDS: COVID-19 VACC #2, MRNA(MOD) 100 MCG/0.5 ML VIAL IM (13:14)
== END ==
PROVIDERS: Family Provider Internal Medicine; PCP Internal Medicine; Visit Provider Internal Medicine
DX: Z23 Encounter for immunization (principal)
CPT/HCPCS: 0012A; 91301

== ENCOUNTER → 2020-12-14 14:39 | Outpatient (ROUT) | payer MEDICARE, BC, SELFPAY ==
[2020-12-14 14:58] LABS: Hemoglobin A1C% w Est Avg Glu 6.1 % (4.0-6.0)
[2020-12-14 15:40] LABS: Alanine Aminotransferase 58 IU/L (<50); Albumin 4.4 g/dL (3.5-5.0); Albumin Globulin Ratio 1.8 (1.0-2.8); Alkaline Phosphatase 65 U/L (38-126); Aspartate Aminotransferase 44 IU/L (17-59); BUN Creatinine Ratio 21.3 (6-22); Bilirubin Total 0.5 mg/dL (0.2-1.3); Blood Urea Nitrogen 19 mg/dL (9-20); Calcium 9.5 mg/dL (8.4-10.2); Carbon Dioxide 30 mmol/L (22-32); Chloride 102 mmol/L (98-107); Cholesterol 122 mg/dL (140-199); Estimated Glomerular Filt Rate > 60.0 mL/min (>60); Globulin 2.4 g/dL (1.7-4.1); Glucose 112 mg/dL (80-110); HDL Cholesterol 56 mg/dL (40-60); HEMOLYSIS < 15 (0-50); LDL Cholesterol Calculated 53 mg/dL (<100); Potassium 4.5 mmol/L (3.4-5.1); Sodium 136 mmol/L (137-145); Total Protein 6.8 g/dL (6.3-8.2); Triglycerides 66 mg/dL (35-150)
== END ==
PROVIDERS: Family Provider Internal Medicine; PCP Internal Medicine; Visit Provider Internal Medicine
DX: E11.9 Type 2 diabetes mellitus without complications (principal); I10 Essential (primary) hypertension; E78.00 Pure hypercholesterolemia, unspecified; N40.1 Benign prostatic hyperplasia with lower urinary tract symptoms
CPT/HCPCS: 80053; 80061; 83036; 84153; 84154

== ENCOUNTER → 2023-07-03 07:57 | Outpatient (CLI) | payer MEDICARE, BC, SELFPAY ==
--- NOTE | 2023-07-03 07:58 | DI.RAD.S_ITS ---
PROCEDURE: XR KUB INDICATIONS: calculus of kidney TECHNIQUE: One view of the abdomen acquired. COMPARISON: [facility], CR, XR ABDOMEN 1 VIEW, 04/14/2022, 9:19. FINDINGS: Surgical changes and devices: None. Bowel: Above average fecal loading. Soft tissues: Possible small calcification in the left mid abdomen, location indeterminate. Bones: Degenerative changes. IMPRESSION: There is a small calcification projected over the left mid abdomen, possibly a left lower pole renal stone versus other hyperdensity. Above average fecal loading, obscuring radiographic evaluation. Dictated by: Michael Walker M.D. on 07/03/2023 at 14:09 Approved by: Michael Walker M.D. on 07/03/2023 at 14:11
== END ==
PROVIDERS: Family Provider Internal Medicine; PCP Physician Assistant; Referring Provider Specialist; Visit Provider Specialist
DX: N20.0 Calculus of kidney (principal)
CPT/HCPCS: 74018

== ENCOUNTER → 2023-08-28 08:06 | Outpatient (CLI) | payer MEDICARE, BC, SELFPAY ==
--- NOTE | 2023-08-28 08:07 | DI.RAD.S_ITS ---
PROCEDURE: XR KUB INDICATIONS: evaluate renal anatomy TECHNIQUE: One view of the abdomen acquired. COMPARISON: [facility], CT, CT ABDOMEN PELVIS W CON, 06/27/2018, 13:53. [facility], CR, XR KUB, 07/03/2023, 8:03. FINDINGS: Surgical changes and devices: None. Bowel: Prominent stool in the right colon. No dilated loops of bowel identified. Soft tissues: Small adjacent left kidney stones measuring 0.3 cm and 0.2 cm, unchanged. No suspicious abdominal calcifications. Splenic artery vascular calcifications. Visualized solid organ contours appear normal in size. Bones: No suspicious bony lesions. Mild bilateral hip DJD. IMPRESSION: 1. Stable small left kidney stones x2. 2. Prominent stool in the right colon. Dictated by: Socrates Sheldon M.D. on 08/28/2023 at 9:03 Approved by: Socrates Sheldon M.D. on 08/28/2023 at 9:05
[2023-08-28 09:33] LABS: Calcium 9.9 mg/dL (8.4-10.2); Uric Acid 5.9 mg/dL (3.5-8.5)
[2023-08-28 14:10] LABS: Prostate Specific Antigen 0.764 ng/mL (0.10-4.00)
== END ==
PROVIDERS: Family Provider Internal Medicine; PCP Physician Assistant; Referring Provider Specialist; Visit Provider Specialist
DX: N40.1 Benign prostatic hyperplasia with lower urinary tract symptoms (principal); N20.0 Calculus of kidney; N13.8 Other obstructive and reflux uropathy
CPT/HCPCS: 36415; 74018; 82310; 84153; 84550

== ENCOUNTER 2023-09-28 06:17 | Day surgery (SDC) | payer MEDICARE, BC, SELFPAY ==
[2023-09-25 14:29] VITALS: BMI 23.6
--- NOTE | 2023-09-28 06:00 | DI.RAD.S_ITS ---
PROCEDURE: XR KUB INDICATIONS: Left renal calculi TECHNIQUE: One view of the abdomen acquired. COMPARISON: [facility], , XR KUB, 08/28/2023, 8:14. FINDINGS: Surgical changes and devices: None. Bowel: Bowel gas pattern is normal. Soft tissues: Left 4 millimeter nephrolithiasis. Visualized solid organ contours appear normal in size. Bones: No suspicious bony lesions. IMPRESSION: Left 4 mm nephrolithiasis. Dictated by: Xenia Mike M.D. on 09/28/2023 at 15:58 Approved by: Xenia Mike M.D. on 09/28/2023 at 16:02
[2023-09-28] MEDS: ACETAMINOPHEN IV 1,000 MG/100 ML VIAL 400 MG IV (06:42)
[2023-09-28] MEDS: LACTATED RINGERS 1,000 ML 21 ML IV (06:42)
[2023-09-28 06:49] VITALS: BP 146/71; PULSE 60; RESP 17; TEMP 35.9; O2SAT 100; BMI 23.6
--- NOTE | 2023-09-28 07:32 | PM.PREOP ---
Pre-operative Note Interval Note History & Physical reviewed/Exam performed by Physician: Yes Changes to H&P: No
--- NOTE | 2023-09-28 07:57 | SUR.OPER ---
Supine on ESWL table, head on pillow, arms padded and tucked at sides, legs uncrossed, tape over blanket over lower legs .
[2023-09-28 08:35] VITALS: BP 98/46; PULSE 58; RESP 14; TEMP 36.4; O2SAT 94
[2023-09-28 08:40] VITALS: BP 112/59; PULSE 60; RESP 14; O2SAT 97
[2023-09-28 08:45] VITALS: BP 106/51; PULSE 66; RESP 14; O2SAT 99
--- NOTE | 2023-09-28 08:45 | P.OP_ITS ---
Operative Date/Time/Diagnoses Date of procedure: 09/28/23 Time of procedure: 08:30 Pre-op diagnosis: Left nephrolithiasis Post-op diagnosis: same Procedure & Clinicians Procedure: 1. Left extracorporeal shockwave lithotripsy (maximal power level 7.0 times 1500 shocks). Same procedure as scheduled: Yes Indications: 1. Left nephrolithiasis 2. History of renal colic Surgeon: Rick Reyes Click Yes if Unassisted: Yes Anesthesia Type: General Operative Notes Findings: Index calculus unchanged in size and position and comparison to preoperative imaging. Closure Type: not applicable Specimen(s): none sent Estimated Blood Loss (mL): 0 Procedure in detail: The patient was positioned supine and was administered general anesthesia. The index calculus was then localized in the X, Y, and Z plane. Lithotripsy was then commenced at minimal power level for 200 shocks. A 2 minute pause was then conducted. Lithotripsy was then resumed and the power level was gradually increased to a maximum of 7.0. The stone and related treatment fragments were re localized as needed throughout the case. At 1500 shock there was excellent evidence of stone comminution. Treatment was halted. Patient was then awakened, transferred to [facility], and then transferred to recovery in stable condition. Complications: none Post-operative Condition: stable Disposition: PACU Plan for aftercare: Discharge home.
[2023-09-28 08:50] VITALS: BP 100/51; PULSE 68; RESP 15; O2SAT 96
[2023-09-28] MEDS: FUROSEMIDE 40 MG/4 ML VIAL 20 MG IV (08:50)
[2023-09-28 09:19] VITALS: BP 118/58; PULSE 67; RESP 14; TEMP 37.1; O2SAT 99
== END 2023-09-28 09:22 | disposition home or self-care (01) ==
PROVIDERS: Family Provider Internal Medicine; PCP Physician Assistant; Referring Provider Specialist; Visit Provider Specialist
PROC: (CPT 50590; principal; 2023-09-28 07:45)
DX: N20.0 Calculus of kidney (principal)
CPT/HCPCS: 50590; 74018; 82962; J0131; J1940; J2405; J2704; J3010

== ENCOUNTER → 2023-11-02 07:09 | Outpatient (CLI) | payer MEDICARE, BC, SELFPAY ==
--- NOTE | 2023-11-02 07:12 | DI.RAD.S_ITS ---
PROCEDURE: XR KUB INDICATIONS: Bilateral Nephrolithiasis TECHNIQUE: One view of the abdomen acquired. COMPARISON: [facility], CR, XR KUB, 09/28/2023, 6:24. FINDINGS: Surgical changes and devices: None. Bowel: Bowel gas pattern is nonobstructive. Significant colonic stool is present. Soft tissues: Punctate calcification is noted overlying the left renal shadow, unchanged. The right renal shadow is obscured by overlying stool. However, a cyst calcification appearing similar to prior exam is partially visualized. Visualized solid organ contours appear normal in size. Bones: No suspicious bony lesions. IMPRESSION: Stable appearance of bilateral calcifications overlying the renal shadows. Significant colonic stool consistent with constipation. No obstruction. Dictated by: Starla Blue M.D. on 11/02/2023 at 14:50 Approved by: Starla Blue M.D. on 11/02/2023 at 14:51
== END ==
LOC: RAD 07:11
PROVIDERS: Family Provider Internal Medicine; PCP Physician Assistant; Referring Provider Specialist; Visit Provider Specialist
DX: N20.0 Calculus of kidney (principal)
CPT/HCPCS: 74018

== ENCOUNTER → 2024-01-01 10:27 | Outpatient (CLI) | payer MEDICARE, BC, SELFPAY ==
--- NOTE | 2024-01-04 09:03 | DIAB.MNT ---
Initial Diabetes Medical Nutrition Therapy Assessment Name: Andrade Juarez Date: 01/01/24 Time: [id number] Dx: Type II Diabetes Andrade presents for initial DM visit. Reports difficulty with food choices while balancing both diabetes and kidney stones prevention. Reports after a low Na lab value, he misinterpreted this as he could have much more Na in his diet. This resulted in high Na intake and kidney stones. Since then has cut down dramatically on Na level, to where he feels most foods have Na and is unsure what he can eat. Sees urology. Reports each time he changes his diet for a diagnosis he seems to form a stone, ie high oxalate diet trying to eat healthy, high Na after low Na lab work. 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 Has cut out nuts, seeds, black tea, dark chocolate to accommodate low oxalate diet. Has cut out tortillas due to Na content. Reports very well managed hgA1c ranging from 5.7-6.1%, most recent 6%. Diet Recall: 630a: zero sugar Turkmen yogurt, 1/4c fruit, low sugar cran/pom juice, ham, egg sn: nothing or fruit (apple or orange) 12p: half turkey sandwich on ww low Na bread, apple or orange sn: shrimp with cocktail sauce or nothing 6p: alba or supervising chef salad sub dressing for oil and vinegar 8p: apple or orange water 48oz, coffee 12oz, tea 24oz = 84oz total Anthropometrics: Ht: 69 Wt: 160# reported Physical Activity: Aims for 10,000 steps per day, free wt resistance training daily Self-Monitoring Blood Glucose: FBG low 100s, pc readings range from 104-130s. All in goal per report. None for review. Diabetes Medications: 1000mg Metformin BID Pertinent Labs: Reported hgA1c of 6% Past Medical History: (Last Updated 11/06/23 @ 11:13 by Rick Reyes MD) Arthritis Bilateral nephrolithiasis BPH w urinary obs/LUTS Calculus of left kidney History of arthritis History of high blood pressure History of kidney stones Hx of diabetes mellitus Nutrition Rx: Carbohydrates: Meal:30-45g Snack:15-30g ; Na: 1500-2000mg per day, 300-500mg per meal ; Fluids: 3L per day Nutrition Diagnosis: - Nutrition and food related knowledge deficit r/t needing additional education on balancing diets of different dx aeb pt report Intervention: This participant was very receptive. Provided appropriate educational handouts. Discussed the following topics: Completed intake assessment. Discussed barriers to care. Na lab education: Na level more indicative of hydration level vs direct Na intake Sodium and fluds recs to reduce kidney stone risk Pairing calcium with healthy oxalate foods, aiming for lower oxalate foods Recommended servings for carbohydrates at meals and snacks Brainstormed appropriate meals/snacks based on food preferences Balancing moderation and quality of life with food choices within recs Created SMART goals for patient self-care and success. Goals: Limit Na to 300-500mg/meal Pair calcium foods with oxalates prn Practice moderation, ie allow occasional tortilla Follow-up: JEANNETTE DUNCAN follow-up prn per pt request. Would like to return after urology visit prn. Encouraged him to call or message for follow-up needs sooner if needed. Melly Lowery RDN, [facility] [place] Certified Diabetes Care and C[employer]on Grader P: [phone] Thank you for this referral
== END ==
PROVIDERS: Family Provider Internal Medicine; PCP Physician Assistant; Referring Provider Physician Assistant; Visit Provider Physician Assistant
DX: E11.9 Type 2 diabetes mellitus without complications (principal); Z79.84 Long term (current) use of oral hypoglycemic drugs; Z71.3 Dietary counseling and surveillance
CPT/HCPCS: 97802

== ENCOUNTER → 2024-02-14 07:14 | Outpatient (CLI) | payer MEDICARE, BC, SELFPAY ==
--- NOTE | 2024-02-14 07:15 | DI.RAD.S_ITS ---
PROCEDURE: XR KUB INDICATIONS: Kidney stones TECHNIQUE: One view of the abdomen acquired. COMPARISON: [facility], CT, CT ABDOMEN PELVIS W CON, 06/27/2018, 13:53. [facility], CR, XR KUB, 11/02/2023, 7:13. FINDINGS: Surgical changes and devices: None. Bowel: Scattered small bowel and colonic gas. No dilated loops of bowel seen. Prominent stool in the colon. Soft tissues: Small bilateral kidney stones appear unchanged. Right kidney stone measuring 0.5 cm. Left kidney stone measuring 0.5 cm. No suspicious abdominal calcifications. Bones: No suspicious bony lesions. IMPRESSION: Small bilateral kidney stones appear unchanged. Dictated by: Socrates Sheldon M.D. on 02/14/2024 at 8:20 Approved by: Socrates Sheldon M.D. on 02/14/2024 at 8:26
== END ==
PROVIDERS: Family Provider Internal Medicine; PCP Physician Assistant; Referring Provider Specialist; Visit Provider Specialist
DX: N20.0 Calculus of kidney (principal); Z87.442 Personal history of urinary calculi
CPT/HCPCS: 74018

== ENCOUNTER → 2024-08-11 08:17 | Outpatient (CLI) | payer MEDICARE, BC, SELFPAY ==
--- NOTE | 2024-08-11 08:18 | DI.RAD.S_ITS ---
PROCEDURE: XR KUB INDICATIONS: history of kidney stones TECHNIQUE: One view of the abdomen acquired. COMPARISON: [facility], CR, XR KUB, 11/02/2023, 7:13. [facility], CR, XR KUB, 02/14/2024, 6:28. FINDINGS: Surgical changes and devices: None. Bowel: Bowel gas pattern is normal. Soft tissues: Small nonobstructing calculus at the inferior pole the right kidney measuring 0.4 cm. Small nonobstructing calculus at the inferior pole the left kidney measuring 0.3 cm. These appear unchanged. No suspicious abdominal calcifications. Visualized solid organ contours appear normal in size. Bones: No suspicious bony lesions. IMPRESSION: Small nonobstructing kidney stones bilaterally appear unchanged. Dictated by: Socrates Sheldon M.D. on 08/11/2024 at 8:55 Approved by: Socrates Sheldon M.D. on 08/11/2024 at 8:57
== END ==
PROVIDERS: Family Provider Internal Medicine; PCP Physician Assistant; Referring Provider Urology; Visit Provider Urology
DX: N40.1 Benign prostatic hyperplasia with lower urinary tract symptoms (principal); N13.8 Other obstructive and reflux uropathy; N20.0 Calculus of kidney
CPT/HCPCS: 74018

== ENCOUNTER → 2024-12-17 14:46 | Outpatient (CLI) | payer MEDICARE, BC, SELFPAY ==
--- NOTE | 2025-01-27 15:47 | DIAB.MNT ---
Initial Diabetes Medical Nutrition Therapy Assessment Name: Andrade Juarez Date: 12/17/24 Time: 310-340p Dx: Type II Diabetes Provider: Bakari Andrade presents for initial DM visit. Reports h/o HTN, kidney stones, and DM. States he is very hungry with current diet. Wants to know what he can eat with multiple diagnosis. States he would like to add fruit to his diet. has been avoiding quite a few carbs, including healthy carbs. Most meals are 15-30g CHO or less. Diet recall: 6a: ham and eggs 10a: apple 1p: slice of bread with turkey and veggies 3p: banana OR shrimp 6-7p: turkey with veggies, slice of bread and salad sn: yogurt or fruit water tea coffee 1c total fluids reported 7-8x 12oz per day Anthropometrics: Wt: 160# reported Physical Activity: not discussed Self-Monitoring Blood Glucose: FBG often 120s and pc readings after breakfast in 80s Diabetes Medications: 1000mg Metformin BID Pertinent Labs: HgA1c; 5.9% reported from summer (gets q 12 months per report) Past Medical History: (Last Reviewed 08/19/24 @ 08:37 by Teo Bgeum DO) Arthritis Bilateral nephrolithiasis BPH w urinary obs/LUTS Calculus of left kidney History of arthritis History of high blood pressure History of kidney stones Hx of diabetes mellitus Nutrition Rx: Carbohydrates: Meal:30g Snack:15-30g Nutrition Diagnosis: - Predicted inadequate CHO intake r/t overly restricting foods he enjoys to reduce BG aeb pt report, diet recall, and hgA1c <6% Intervention: This participant was very receptive. Provided appropriate educational handouts. Discussed the following topics: Completed intake assessment. Plate Method, impact of macronutrients on blood sugar, meal timing, carbohydrate counting light, pairing macronutrients and spreading out carbohydrates for better blood glucose management Recommended servings for carbohydrates at meals and snacks Heart health nutrition Brainstormed appropriate meal plan based on food preferences Created SMART goals for patient self-care and success. Goals: Aim for 30g CHO at meals Eat potatoes in moderation Eat nuts in small portions Follow-up: RDN [facility] follow-up prn per pt request. Overall, Andrade is doing very well managing his DM. We discussed ways for him to incorporate some foods he enjoy in moderation given the medical conditions that he has. Encouraged him to call or message with any follow-up needs. Melly Lowery RDN, [facility] Certified Diabetes Care and Sole Ruffer P: [phone] Thank you for this referral
== END ==
PROVIDERS: Family Provider Internal Medicine; PCP Physician Assistant; Referring Provider Physician Assistant
DX: E11.9 Type 2 diabetes mellitus without complications (principal); I10 Essential (primary) hypertension; Z87.442 Personal history of urinary calculi; Z79.84 Long term (current) use of oral hypoglycemic drugs; Z71.3 Dietary counseling and surveillance
CPT/HCPCS: 97803

== ENCOUNTER → 2025-02-11 08:06 | Outpatient (CLI) | payer MEDICARE, BC, SELFPAY ==
--- NOTE | 2025-02-11 08:10 | DI.RAD.S_ITS ---
PROCEDURE: XR KUB INDICATIONS: Calculus of kidney TECHNIQUE: One view of the abdomen acquired. COMPARISON: [facility], CR, XR KUB, 02/14/2024, 6:28. [facility], CR, XR KUB, 08/11/2024, 8:17. FINDINGS: Surgical changes and devices: None. Bowel: Increased fecal loading. Soft tissues: No suspicious abdominal calcifications. Small bilateral renal stones redemonstrated measuring roughly 3-4 mm. Visualized solid organ contours appear normal in size. Bones: No suspicious bony lesions. IMPRESSION: Bilateral nephrolithiasis appearing similar prior examination dated 08/11/2024. Dictated by: Elver Branham RRLizette Interpreted: Michael Walker MD on 02/11/2025 at 9:13 Transcribed by: MICHELE on 02/11/2025 at 9:15 Approved by: Michael Walker M.D. on 02/11/2025 at 12:31
== END ==
PROVIDERS: Family Provider Internal Medicine; PCP Physician Assistant; Referring Provider Urology; Visit Provider Urology
DX: N20.0 Calculus of kidney (principal)
CPT/HCPCS: 74018